=== PATIENT | male | born 1985 | race African-American/Black ===

== ENCOUNTER 2021-02-18 06:07 | Emergency (ER) | payer MEDICARE, MEDICAID ==
[~2021-02-18] VITALS: Ht 188 cm; Wt 82.0 kg
[2021-02-18] MEDS ORDERED: ACETAMINOPHEN 325MG TABLET PO ONE (07:15)
[2021-02-18 12:15] VITALS: BP 122/81
== END 2021-02-18 13:01 | disposition home or self-care (01) ==
LOC: ER 06:07
DX: F23 Brief psychotic disorder (principal); F41.9 Anxiety disorder, unspecified; F31.9 Bipolar disorder, unspecified; Z98.890 Other specified postprocedural states
CPT/HCPCS: 99285

== ENCOUNTER 2021-07-30 00:33 | Emergency (ER) | payer MEDICARE, MEDICAID ==
[~2021-07-30] VITALS: Ht 182.9 cm; Wt 84.0 kg
== END 2021-07-30 01:20 | disposition left against medical advice (07) ==
LOC: ER 01:16
DX: F41.1 Generalized anxiety disorder (principal); F43.0 Acute stress reaction; F31.9 Bipolar disorder, unspecified; Z86.16 Personal history of COVID-19
CPT/HCPCS: 99283

== ENCOUNTER 2021-07-30 01:35 | Emergency (ER) | payer MEDICARE, MEDICAID ==
[2021-07-30] MEDS ORDERED: LORAZEPAM 1MG TABLET PO ONE (02:00)
== END 2021-07-30 03:14 | disposition left against medical advice (07) ==
LOC: ER 01:56
DX: F41.1 Generalized anxiety disorder (principal); F43.0 Acute stress reaction; F31.9 Bipolar disorder, unspecified
CPT/HCPCS: 99281

== ENCOUNTER 2021-08-04 21:20 | Emergency (ER) | payer MEDICARE, MEDICAID | END 2021-08-04 22:38 | disposition left against medical advice (07) | LOC: ER 21:20 | DX: Z53.21 Procedure and treatment not carried out due to patient leaving prior to being seen by health care provider (principal) ==

== ENCOUNTER 2022-12-26 03:54 | Emergency (ER) | payer MEDICARE, MEDICAID ==
[~2022-12-26] VITALS: Ht 177.8 cm; Wt 82.0 kg
[2022-12-26 03:58] VITALS: TEMP 98.8; O2SAT 99
[2022-12-26 07:30] VITALS: BP 136/80; PULSE 86; RESP 18
[2022-12-26] MEDS ORDERED: IBUPROFEN 600MG TABLET PO ONE (07:30)
== END 2022-12-26 08:47 | disposition home or self-care (01) ==
LOC: ER 03:54
DX: M79.641 Pain in right hand (principal); F41.9 Anxiety disorder, unspecified; F31.9 Bipolar disorder, unspecified; I10 Essential (primary) hypertension; F12.10 Cannabis abuse, uncomplicated
CPT/HCPCS: 73120; 99283

== ENCOUNTER 2023-02-06 09:35 | Emergency (ER) | payer MEDICARE, MEDICAID ==
[~2023-02-06] VITALS: Ht 188 cm; Wt 59.0 kg
[2023-02-06 09:46] VITALS: O2SAT 99
[2023-02-06 15:35] LABS: BASOPHILS % 0.7 % (0.0-2.0); EOSINOPHILS % 0.7 % (0.0-5.0); HEMATOCRIT. 37.3 % (42.0-52.0); HEMOGLOBIN. 12.1 g/dL (14.0-18.0); LYMPHOCYTES % 25.8 % (20.0-50.0); MEAN CORPUSCULAR HGB CONC 32.4 g/dL (31.0-37.0); MEAN CORPUSCULAR VOLUME 98.7 fL (80.0-94.0); MEAN PLATELET VOLUME 7.2 fl (7.4-10.4); NEUTROPHILS % 62.8 % (40.0-76.0); PLATELET 432 x1000/uL (130-400); RED BLOOD CELL COUNT 3.78 mill/uL (4.7-6.1); RED CELL DISTRIBUTION WIDTH 13.8 % (11.6-14.6); WHITE BLOOD COUNT 8.3 x1000/uL (4.5-11.0)
[2023-02-06 15:52] LABS: CHLORIDE 106 mEq/L (98-107); INDEX HEMOLYSI 4 (1-3); INDEX ICTERIC 1 (1-4); INDEX LIPEMIC 1 (1-3); SODIUM 138 mEq/L (136-145)
[2023-02-06 16:02] LABS: ACETAMINOPHEN <2 ug/mL ug/mL (10-30); ALANINE AMINOTRANSFERASE 35 IU/L (13-61); ALBUMIN 3.3 g/dL (3.4-5.0); ASPARTATE AMINOTRANSFERASE 33 IU/L (15-37); BILIRUBIN TOTAL 0.7 mg/dL (0.1-1.0); CALCIUM 8.4 mg/dL (8.5-10.1); CARBON DIOXIDE 25 mEq/L (21-32); CREATININE 0.9 mg/dL (0.6-1.3); ETHANOL BLOOD < 10 mg/dL (-10); GLUCOSE 94 mg/dL (70-105); PROTEIN TOTAL 7.3 g/dL (6.0-8.3); UREA NITROGEN BLOOD 7 mg/dL (7-21)
[2023-02-06 16:07] LABS: POTASSIUM 4.1 mEq/L (3.5-5.1)
[2023-02-06 16:28] LABS: *AMPHETAMINES SCREEN URINE NEGATIVE (NEGATIVE); *BARBITURATES SCREEN URINE NEGATIVE (NEGATIVE); *BENZODIAZEPINES SCREEN URINE NEGATIVE (NEGATIVE); *COCAINE SCREEN URINE NEGATIVE (NEGATIVE); CANNABINOID URINE SCREEN NEGATIVE (NEGATIVE); ECSTASY MDMA SCREEN URINE NEGATIVE (NEGATIVE); METHADONE URINE SCREEN NEGATIVE (NEGATIVE); OPIATES URINE SCREEN NEGATIVE (NEGATIVE); PHENCYCLIDINE URINE SCREEN NEGATIVE (NEGATIVE)
[2023-02-06] MEDS ORDERED: KETOROLAC 30MG/ML VIAL IM ONE (23:15)
[2023-02-06] MEDS ORDERED: DIPHENHYDRAMINE 25MG CAPSULE PO NR (23:15)
[2023-02-07] MEDS ORDERED: LORAZEPAM 2MG/ML CPJ IM ONE (04:45)
[2023-02-07] MEDS ORDERED: OXYCODONE HCL/ACETAMINOPHEN 5/325MG TABLET PO ONE (12:00)
[2023-02-07] MEDS ORDERED: KETOROLAC 60MG/2ML VIAL IM ONE (16:15)
[2023-02-07] MEDS ORDERED: QUETIAPINE FUMARATE 50MG TABLET PO SCH (21:00)
[2023-02-08] MEDS ORDERED: HYDROCODONE/ACETAMINOPHEN 5/325MG TABLET PO ONE ×2 (00:45→08:30)
[2023-02-08] MEDS ORDERED: KETOROLAC 30MG/ML VIAL IM ONE (01:00)
[2023-02-08] MEDS ORDERED: OLANZAPINE 10 MG/VIAL IM ONE (10:45)
[2023-02-08 10:49] VITALS: BP 138/81; PULSE 82; RESP 18; TEMP 98.2
== END 2023-02-08 13:02 | disposition home or self-care (01) ==
LOC: ER 09:59
DX: S52.501A Unspecified fracture of the lower end of right radius, initial encounter for closed fracture (principal); R45.851 Suicidal ideations; F41.9 Anxiety disorder, unspecified; F31.9 Bipolar disorder, unspecified; I10 Essential (primary) hypertension; X58.XXXA Exposure to other specified factors, initial encounter; Y93.89 Activity, other specified; Y92.89 Other specified places as the place of occurrence of the external cause; Y99.8 Other external cause status; Z20.822 Contact with and (suspected) exposure to COVID-19
CPT/HCPCS: 80053; 80305; 80307; 80329; 80320; 85025; 36415; 73110; 96372; 99285; 87426; Q0163; J1885 ×3; C9803; J2060; J3490; A4565; G0480